=== PATIENT | female | born 1960 | race Caucasian/White ===

== ENCOUNTER 2016-06-04 11:03 | Emergency (ER) | payer OTHER ==
[~2016-06-04] VITALS: Ht 157.5 cm; Wt 90.7 kg
[~2016-06-04 11:03] MED LIST: PERCOCET 325 MG1 TA2 PO; ZOFRAN ODT4 M1 SL
[2016-06-04 11:16] VITALS: BP 151/101
--- NOTE | 2016-06-04 11:36 | ED NECK/BACK PAIN COMPLAINT ---
History of Present Illness General Chief Complaint: Low Back Pain/Injury Stated Complaint: LOW BACK PAIN Source: patient, old records Exam Limitations: no limitations Vital Signs & Intake/Output Vital Signs & Intake/Output Vital Signs Date Time Temp Pulse Resp B/P Pulse O2 O2 Flow FiO2 Ox Delivery Rate 06/04 1116 98.7 77 20 151/101 96 Room Air Allergies Coded Allergies: moxifloxacin (Severe, ANAPHYLAXIS 11/18/15) Reconcile Medications Methylprednisolone. (Medrol) 4 MG TAB.DS.PK 1 DP PO AD RADICULOPATHY 6 on day 1 then reduce by one tablet daily until gone Ondansetron (Zofran Odt) 4 MG TAB.RAPDIS 1 TAB SL TID PRN NAUSEA Oxycodone HCl/Acetaminophen (Percocet 5-325 MG Tablet) 5 MG-325 MG TABLET 1 TAB PO TID PRN PAIN OXYCODONE HCL/ACETAMINOPHEN (Percocet 5-325 MG Tablet) 325 MG/5 MG TAB 1-2 TAB PO Q4-6 PRN PRN PAIN Triage Note: PT TO ED C/O LOWER BACK PAIN X 1 WEEK. H/O BURSITIS TO LEFT HIP, STATES PAIN HAS BEEN IN RIGHT HIP LATELY. TOOK MOTRIN THIS AM WITH NO RELIEF. Triage Nurses Notes Reviewed? yes Onset: Abrupt Duration: day(s): (1), constant Timing: recent history Quality/Severity: moderate, severe, sharp Location: paraspinous muscles Radiation: buttocks (r hip) Method of Injury: unknown Loss of Consciousness: no loss of consciousness Modifying Factors: immobilization, movement, pain medication Associated Symptoms: denies HPI: This is a 55-year-old female with history of cervical spine fusion chronic back pain and bursitis the left hip presents complaining of a one-week history of right lower back pain as radiating to her right hip and down into her right leg that has been worse since earlier this morning while at work. She denies any known specific injury or trauma no recent heavy lifting. She took ibuprofen prior to arrival without improvement in her pain. She denies any urinary bowel incontinence no abdominal pain. She states the pain before was so severe that it made her nauseous however there was no vomiting and denies nausea at this time. No urinary dysuria urgency frequency hematuria no history of kidney stones. The pain is present and worse with change in position better at rest. The patient takes Valium as needed for anxiety and has been on Percocet in the past for her pain she denies fevers or chills no diarrhea no change in her bowel movements (FERNANDO GIANG) Past History Travel History Traveled to [place] past 21 day No Medical History Any Pertinent Medical History? 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 No (FERNANDO GIANG) Review of Systems Review of Systems Constitutional: Reports: see HPI. All Other Systems: Reviewed and Negative Comments Review of systems: See HPI, All other systems negative. Constitutional, no chills no fever, no malaise HEENT: No visual changes no sore throat no congestion, Cardiovascular: No chest pain , no palpitation Skin, no rashes, no change in skin Respiratory: No dyspnea no cough no sputum GI: No nausea no vomiting, no diarrhea, no bloating/constipation : No dysuria No hematuria, no frequency, no discharge Muscle skeletal: No joint pain, no joint swelling, back pain, no neck pain, Neurologic: No numbness no headache Psych: No stress. Heme/endocrine: No bruising no bleeding Immunology: No lymphadenopathy (FERNANDO GIANG) Physical Exam Physical Exam General Appearance: well developed/nourished, no apparent distress, alert, awake Neck: normal inspection, supple, full range of motion Comments: Well-developed well-nourished person in no acute distress HEENT: Normal EENT exam; PERRL, EOMI. HEAD is atraumatic. moist mucous membranes. Neck: Supple, normal range of motion Back: There is right paralumbar muscle tenderness palpation no midline tenderness, no CVA tenderness. Full range of motion Cardiovascular: Regular rate and rhythms no murmurs rubs Respiratory: No respiratory distress. Patient speaking in full complete sentences. Breath sounds clear to auscultation bilaterally: NO W/R/R Abdomen: Soft, nontender nondistended, no appreciable organomegaly. Normal bowel sounds. No rebound/guarding, No appreciable enlargement of the abdominal aorta there is no right lower quadrant tenderness to palpation no peritoneal signs Extremity: No edema, positive straight leg raise to the right lower extremity full range of motion of extremities, normal and equal pulses bilaterally, 5 out of 5 strength noted to bilateral upper and lower extremities Neuro: Alert oriented x3, motor sensory normal, There were no obvious focal neurologic abnormalities. Skin: No appreciable rash on exposed skin, skin is warm and dry. Psych: Mood and affect is normal, memory and judgment is normal. (FERNANDO GIANG) Progress Differential Diagnosis: AAA, cauda equina syn, herniated disc, myofascial strain , pyelo/UTI, sciatica, spinal cord inj, T/L spine injury, ureterolithiasis, appendicitis Plan of Care: Current Medications Sig/Karishma Start time Last Medication Dose Stop Time Status Admin Ketorolac 60 MG ONCE ONE 06/04 1199 UNVr Tromethamine 06/04 1201 (Toradol) Oxycodone/ 1 TAB ONCE ONE 06/04 1200 UNVr Acetaminophen 06/04 1201 (Percocet) Prednisone 60 MG ONCE ONE 06/04 1200 UNVr 06/04 1201 Patient clinically looks well. Patient has no evidence of radiculopathy. There is no abdominal pain No urinary bowel dysfunction. No numbness in the genital area. Strength intact. Gross sensation intact. Patient resting comfortably and in no apparent distress. Pain is worse with range of motion. Pain is reproducible IN back with no bruising or ecchymosis noted. . Patient is to follow-up with primary care doctor. May need MRI of the lower back at some point time. No concerns for cauda equina at this point time. I considered this diagnosis but patient does not have any symptoms consistent with cauda equina. Patient has no secondary causes of back pain. No cardiac, pulmonary, or abdominal complaints. No abdominal pain on exam. Cardiac pulmonary exam within normal limits. No rashes, afebrile, denies recent weight loss, dizziness, lightheadedness. Patient is ambulatory with steady gait upon discharge (FERNANDO GIANG) Departure Departure Time of Disposition: 1157 Disposition: HOME OR SELF CARE Condition: Stable Clinical Impression Primary Impression: Lumbar radiculopathy Referrals: PATIENT HAS NO PRIMARY CARE DR (PCP/Family) Additional Instructions: Follow-up with your primary care physician this week. Percocet for breakthrough pain use caution as making her drowsy this will make you drowsy. Medrol Dosepak as directed. Take a half of a Valium as needed. Return anytime sooner with any concerns these prescriptions were sent here pharmacy Departure Forms: Customer Survey General Discharge Information Prescriptions: Current Visit Scripts Methylprednisolone. (Medrol) 1 DP PO AD #1 DP 6 on day 1 then reduce by one tablet daily until gone Oxycodone HCl/Acetaminophen (Percocet 5-325 MG Tablet) 1 TAB PO TID PRN PAIN #10 TAB (FERNANDO GIANG) PA/ONLINE JOURNALIST Co-Sign Statement Statement: ED Attending supervision documentation- [] I saw and evaluated the patient. I have also reviewed all the pertinent lab results and diagnostic results. I agree with the findings and the plan of care as documented in the PA's/ONLINE JOURNALIST's documentation. [X] I have reviewed the ED Record and agree with the PA's/ONLINE JOURNALIST's documentation. [] Additions or exceptions (if any) to the PAs/ONLINE JOURNALIST's note and plan are summarized below: [] (GABI ELKINS DO)
[2016-06-04] MEDS ORDERED: MEDROL4 M2 PO (11:58)
[2016-06-04] MEDS ORDERED: PERCOCET 5-3251 EACH PO (11:58)
== END 2016-06-04 12:32 ==
LOC: ERH 11:03
DX: M54.16 Radiculopathy, lumbar region (principal)
CPT/HCPCS: 96372; J1885